=== PATIENT | female | born 2005 | race Caucasian/White ===

== ENCOUNTER 2024-05-12 09:04 | Emergency (ER) | payer OTHER ==
[~2024-05-12] VITALS: Ht 152.4 cm; Wt 61.4 kg
[2024-05-12] MEDS: UNRESOLVED CLARIFICATION ENTRY XX STA (10:03)
[2024-05-12] MEDS: ACETAMINOPHEN 325 MG TAB PO ONE (10:16)
[2024-05-12 10:35] LABS: HEMATOCRIT 36.8 % (36.0-47.0); HEMOGLOBIN 12.4 g/dl (12.0-15.5); MEAN CORPUSCULAR HEMOGLOBIN 29.1 pg (27.0-33.0); MEAN CORPUSCULAR HGB CONC 33.7 g/dl (32.0-36.5); MEAN CORPUSCULAR VOLUME 86.4 fl (80.0-96.0); PLATELET COUNT, AUTOMATED 274 10^3/uL (150-450); RED BLOOD COUNT 4.26 10^6/uL (4.00-5.40); WHITE BLOOD COUNT 6.1 10^3/uL (4.0-10.0)
[2024-05-12 10:39] LABS: KETONE, URINE AUTO RFX NEGATIVE (NEGATIVE); LEUKOCYTE ESTERASE UR AUTO RFX NEGATIVE (NEGATIVE); MUCUS, URINE RFX SMALL (NEGATIVE); NITRITE, URINE AUTO RFX NEGATIVE (NEGATIVE); RBC, URINE AUTO RFX 1 /HPF (0-3); SQUAM EPITHELIAL CELL UR AURFX 9 /HPF (0-6); WBC, URINE AUTO RFX 3 /HPF (0-3)
[2024-05-12 10:48] LABS: HCG, SERUM QUANTITATIVE 576.2 MIU/ML (<4.2)
[2024-05-12 10:51] LABS: BLOOD UREA NITROGEN 11 MG/DL (9-23); CALCIUM LEVEL 9.1 MG/DL (8.5-10.1); CARBON DIOXIDE LEVEL 23 MMOL/L (20-31); CHLORIDE LEVEL 109 MMOL/L (98-107); CREATININE FOR GFR 0.54 MG/DL (0.55-1.30); GLUCOSE, FASTING 87 MG/DL (60-100); POTASSIUM SERUM 4.2 MMOL/L (3.5-5.1); SODIUM LEVEL 138 MMOL/L (136-145)
[2024-05-12 11:16] VITALS: BP 102/68; TEMP 96.3; O2SAT 99
== END 2024-05-12 11:19 | disposition home or self-care (01) ==
LOC: M ED 09:04
DX: O26.891 Other specified pregnancy related conditions, first trimester (principal); R10.2 Pelvic and perineal pain; Z3A.01 Less than 8 weeks gestation of pregnancy

== ENCOUNTER 2024-06-18 10:00 | Emergency (ER) | payer OTHER ==
[~2024-06-18] VITALS: Ht 152.4 cm; Wt 69.9 kg
[2024-06-18] MEDS ORDERED: PRENTAB53 PO (10:07)
[2024-06-18] MEDS ORDERED: APAP325T4 PO (10:31)
[2024-06-18 10:44] LABS: BASO % 0.3 % (0.0-1.0); EOS # 0.1 10^3/uL (0.0-0.5); EOS % 0.8 % (0.0-3.0); HEMATOCRIT 41.6 % (36.0-47.0); LYMPH # 1.8 10^3/uL (1.5-5.0); LYMPH % 20.2 % (24.0-44.0); MEAN CORPUSCULAR HEMOGLOBIN 29.4 pg (27.0-33.0); MEAN CORPUSCULAR HGB CONC 33.7 g/dl (32.0-36.5); MEAN CORPUSCULAR VOLUME 87.4 fl (80.0-96.0); MONO # 0.5 10^3/uL (0.0-0.8); MONO % 5.7 % (2.0-8.0); NEUTROPHILS # 6.5 10^3/uL (1.5-8.5); NEUTROPHILS % 72.8 % (36.0-66.0); PLATELET COUNT, AUTOMATED 315 10^3/uL (150-450); RED BLOOD COUNT 4.76 10^6/uL (4.00-5.40)
[2024-06-18 11:12] LABS: LIPASE 34 U/L (12-53)
[2024-06-18 11:14] LABS: ALKALINE PHOSPHATASE 62 U/L (35-104); ALT/SGPT 27 U/L (7.0-40); AST/SGOT 24 U/L (<34); BILIRUBIN,DIRECT < 0.1 MG/DL (<0.4); BILIRUBIN,TOTAL 0.4 MG/DL (0.3-1.2); BLOOD UREA NITROGEN 6 MG/DL (9-23); CALCIUM LEVEL 9.2 MG/DL (8.5-10.1); CARBON DIOXIDE LEVEL 22 MMOL/L (20-31); CHLORIDE LEVEL 106 MMOL/L (98-107); CREATININE FOR GFR 0.48 MG/DL (0.55-1.30); GLUCOSE, FASTING 70 MG/DL (60-100); POTASSIUM SERUM 3.8 MMOL/L (3.5-5.1); SODIUM LEVEL 140 MMOL/L (136-145); TOTAL PROTEIN 7.7 G/DL (5.7-8.2)
[2024-06-18] MEDS: ACETAMINOPHEN 500 MG TAB PO ONE (12:24)
[2024-06-18 12:39] LABS: HCG, SERUM QUANTITATIVE 94890.9 MIU/ML (<4.2)
[2024-06-18 13:04] VITALS: BP 111/74; TEMP 97.1; O2SAT 100
== END 2024-06-18 13:08 | disposition home or self-care (01) ==
LOC: M ED 10:00
DX: O26.891 Other specified pregnancy related conditions, first trimester (principal); R10.9 Unspecified abdominal pain; R51.9 Headache, unspecified; Z79.1 Long term (current) use of non-steroidal anti-inflammatories (NSAID); Z79.899 Other long term (current) drug therapy; Z3A.10 10 weeks gestation of pregnancy

== ENCOUNTER → 2024-12-24 | Outpatient (REF) | payer OTHER ==
[~2024-12-24] MED LIST: APAP325T4 PO; PRENTAB53 PO
== END ==
LOC: M SFHCWAGY 10:17
PROVIDERS: ATTEND Advanced Practice Midwife
DX: Z34.03 Encounter for supervision of normal first pregnancy, third trimester (principal)

== ENCOUNTER 2025-01-11 10:38 | Inpatient (IN) | payer OTHER ==
[~2025-01-11] VITALS: Ht 152.4 cm; Wt 82.3 kg
[2025-01-11] VITALS (7 sets, daily range): BP systolic 100–118; BP diastolic 58–73
[2025-01-11] MEDS ORDERED: METHYLERGONOVINE MALEATE 0.2 MG/ML 1 ML VIAL IM PRN (10:55)
[2025-01-11] MEDS ORDERED: TRANEXAMIC ACID INJection 1,000 MG in NS 100 ML IV PRN (10:55)
[2025-01-11] MEDS ORDERED: OXYTOCIN DRIP 30 UNITS in IV 1 EA IV PRN (10:55)
[2025-01-11] MEDS ORDERED: CARBOPROST TROMETHAMINE 250 MCG/ML AMP IM PRN (10:55)
[2025-01-11] MEDS ORDERED: LIDOCAINE 1% MDV 20 ML VIAL INFIL PRN (10:55)
[2025-01-11] MEDS ORDERED: OXYTOCIN INJ 10UNITS/ML 1ML VIAL IM PRN (10:55)
[2025-01-11] MEDS ORDERED: HOME MED LIST COMPLETE! XX SCH (11:05)
[2025-01-11] MEDS ORDERED: OMEP1CAP73 PO (11:05)
[2025-01-11 11:53] LABS: PLATELET COUNT, AUTOMATED 318 10^3/uL (150-450)
[2025-01-11] MEDS: miSOPROStol 50 MCG 1/2 TABLET PO SCH (11:53)
[2025-01-11 12:50] LABS: HIV 1&2 SCREEN NEGATIVE (NEGATIVE)
[2025-01-11 12:58] LABS: HEPATITIS C VIRUS ABY INDEX 0.03 INDEX (<0.8)
[2025-01-12 00:07] VITALS: BP 99/57
[2025-01-12 01:12] VITALS: BP 108/65
[2025-01-12 03:31] VITALS: BP 100/61
[2025-01-12 06:23] VITALS: BP 113/69
[2025-01-12 07:28] VITALS: BP 105/61
== END 2025-01-12 08:24 | disposition home or self-care (01) | DRG 833 ==
LOC: M LDI 10:38
PROVIDERS: ADMIT Advanced Practice Midwife; ATTEND Advanced Practice Midwife
PROC: 3E0P7GC Introduction of Other Therapeutic Substance into Female Reproductive, Via Natural or Artificial Opening (ICD-10-PCS; principal; 2025-01-11)
DX: O61.0 Failed medical induction of labor (principal); Z3A.39 39 weeks gestation of pregnancy

== ENCOUNTER 2025-01-27 07:55 | Inpatient (IN) | payer OTHER ==
[~2025-01-27] VITALS: Ht 152.4 cm; Wt 84.5 kg
[2025-01-27] VITALS (27 sets, daily range): BP systolic 86–141; BP diastolic 50–72; O2SAT 99
[~2025-01-27 07:55] MED LIST changes: +OMEP1CAP73 PO
[2025-01-27] MEDS ORDERED: HOME MED LIST COMPLETE! XX SCH (08:15)
[2025-01-27] MEDS ORDERED: TRANEXAMIC ACID INJection 1,000 MG in NS 100 ML IV PRN (09:05)
[2025-01-27] MEDS ORDERED: OXYTOCIN INJ 10UNITS/ML 1ML VIAL IM PRN (09:05)
[2025-01-27] MEDS ORDERED: LIDOCAINE 1% MDV 20 ML VIAL INFIL PRN (09:05)
[2025-01-27] MEDS ORDERED: METHYLERGONOVINE MALEATE 0.2 MG/ML 1 ML VIAL IM PRN (09:05)
[2025-01-27] MEDS ORDERED: CARBOPROST TROMETHAMINE 250 MCG/ML AMP IM PRN (09:05)
[2025-01-27 09:48] LABS: PLATELET COUNT, AUTOMATED 327 10^3/uL (150-450)
[2025-01-27 10:44] LABS: HIV 1&2 SCREEN NEGATIVE (NEGATIVE)
[2025-01-27 10:51] LABS: HEPATITIS C VIRUS ABY INDEX 0.02 INDEX (<0.8)
[2025-01-27] MEDS ORDERED: diphenhydrAMINE 50 MG/ML VIAL IV PRN (20:30)
[2025-01-27] MEDS ORDERED: EPIDURAL/PCA KEYS XX PRN (20:30)
[2025-01-27] MEDS ORDERED: NALOXONE INJ 0.4 MG/1 ML VIAL IV PRN (20:30)
[2025-01-27] MEDS: LACTATED RINGER'S 1000 ML IV STA (20:38)
[2025-01-27] MEDS: LR 1,000 ML IV SCH (20:38)
[2025-01-27] MEDS: FENTANYL/ROPIVACAINE/NACL BAG 100 ML EPIDURAL SCH (20:41)
[2025-01-27] MEDS: OXYTOCIN DRIP 30 UNITS in IV 1 EA IV SCH (21:19)
[2025-01-27] MEDS: LR 500 ML IV PRN ×2 (22:03→22:46)
[2025-01-28] VITALS (75 sets, daily range): BP systolic 81–131; BP diastolic 42–84; O2SAT 98
[2025-01-28] MEDS: ONDANSETRON 4MG 2ML VIAL IV PRN (09:15)
[2025-01-28] MEDS: OXYTOCIN DRIP 30 UNITS in IV 1 EA IV PRN (11:14)
[2025-01-28 11:30] LABS: CORD GAS ABE A -6.7; CORD GAS HCO3 A 19.7 MMOL/L; CORD GAS O2 SAT A 46.2 %; CORD GAS PCO2 A 42.6 mmHg; CORD GAS PH A 7.283 UNITS; CORD GAS PO2 A 24.7 mmHg; CORD GAS SBC A 17.8 MMOL/L; CORD GAS TCO2 A 21.0 MMOL/L
[2025-01-28 11:31] LABS: CORD GAS ABE V -6.1; CORD GAS HCO3 V 18.0 MMOL/L; CORD GAS O2 SAT V 62.8 %; CORD GAS PCO2 V 32.4 mmHg; CORD GAS PH V 7.362 UNITS; CORD GAS PO2 V 27.5 mmHg; CORD GAS SBC V 18.7 MMOL/L; CORD GAS TCO2 V 19.0 MMOL/L
[2025-01-28] MEDS ORDERED: DOCUSATE SODIUM 100 MG CAPSULE PO PRN (11:35)
[2025-01-28] MEDS ORDERED: DIBUCAINE 1% OINTMENT 30 GM TOP PRN (11:35)
[2025-01-28] MEDS ORDERED: ANUSOL HC CREAM 30 GM TOP PRN (11:35)
[2025-01-28] MEDS ORDERED: MOM 30 ML SUSPENSION UDC PO PRN (11:35)
[2025-01-28] MEDS: ACETAMINOPHEN 500 MG TAB PO PRN (13:14)
[2025-01-28] MEDS: IBUPROFEN 800 MG TAB PO PRN (13:14)
[2025-01-28] MEDS: LR 500 ML IV ONE (14:02)
[2025-01-28] MEDS: OMEPRAZOLE 20MG CAP PO SCH (15:55)
[2025-01-28] MEDS ORDERED: ECOT81TA5 PO (16:42)
[2025-01-29 05:00] VITALS: BP 85/52; O2SAT 98
[2025-01-29] MEDS: PRENATAL VITAMINS CHEWABLE TABLET PO SCH (08:27)
[2025-01-29] MEDS ORDERED: FLUZONE VACCINE TRI PF(25-26) 0.5ML SYRINGE IM.IMMUN ONE (09:00)
[2025-01-29] MEDS: RHOGAM 300MCG (1500IU) INJ IM SCH (12:16)
[2025-01-29 18:00] VITALS: BP 92/56; O2SAT 100
[2025-01-30 05:52] VITALS: BP 100/62; O2SAT 98
[2025-01-30] MEDS: MEASLES,MUMPS,RUBELLA VACCINE INJ (MMR-II) SC.IMMUN ONE (06:59)
[2025-01-30] MEDS: FLUZONE VACCINE TRI PF(25-26) 0.5ML SYRINGE IM.IMMUN ONE (08:06)
== END 2025-01-30 12:13 | disposition home or self-care (01) | DRG 807 ==
LOC: M LDO 07:55 → M LDI 09:01 → M OBS 01-28 15:11
PROVIDERS: ADMIT Advanced Practice Midwife; ATTEND Advanced Practice Midwife
PROC: 0HQ9XZZ Repair Perineum Skin, External Approach (ICD-10-PCS; 2025-01-27)
PROC: 10E0XZZ Delivery of Products of Conception, External Approach (ICD-10-PCS; principal; 2025-01-28)
DX: O48.0 Post-term pregnancy (principal); Z37.0 Single live birth; Z3A.41 41 weeks gestation of pregnancy; O70.0 First degree perineal laceration during delivery